=== PATIENT | male | born 1965 | race Two or more races ===

== ENCOUNTER 2021-06-27 13:16 | Emergency (ER) | payer SELFPAY ==
[~2021-06-27] VITALS: Ht 177.8 cm; Wt 78.3 kg
--- NOTE | 2021-06-27 14:48 | PHYS DOC ---
General Adult EDM: Chief Complaint: SHORTNESS OF BREATH HPI: HPI: Patient is a 56 year old male who presents with 5 days ago began with no taste, no smell, nausea, vomiting, headache, body aches, cough, upper back pain and then today began with shortness of breath and chest pain. Patient was diagnosed with Covid yesterday. He states he has not taken any Tylenol or ibuprofen for the last 5 days. He takes no medications daily and denies any kind of medical history. He is Israeli-speaking and chief librarian circulation department is used. Rates his pain an 8 out of 10. Denies syncope, dizziness, vision change, diarrhea, numbness or tingling, focal weakness, abdominal pain, smoking, urinary symptoms. Review of Systems: Review of Systems: Constitutional: +fever or +chills. [] Eyes: Denies change in visual acuity. [] HENT: Denies nasal congestion or sore throat. [] Respiratory: +cough or +shortness of breath. [] Cardiovascular: +chest pain or denies edema. [] GI: Denies abdominal pain, +nausea, +vomiting, denies bloody stools or diarrhea. [] : Denies dysuria. [] Musculoskeletal: +back pain or joint pain. + Generalized body aches [] Integument: Denies rash. [] Neurologic: +headache, denies focal weakness or sensory changes. [] Endocrine: Denies polyuria or polydipsia. [] Lymphatic: Denies swollen glands. [] Psychiatric: Denies depression or anxiety. [] Heart Score: C/O Chest Pain: Yes HEART Score for Chest Pain: HEART Score for Chest Pain Response (Comments) Value History Slighlty/Non-Suspicious 0 ECG Normal 0 Age >45 - < 65 1 Risk Factors No Risk Factors 0 Troponin < Normal Limit 0 Total 1 Risk Factors: Risk Factors: DM, Current or recent (<one month) smoker, HTN, HLP, family history of CAD, obesity. Risk Scores: Score 0 - 3: 2.5% MACE over next 6 weeks - Discharge Home Score 4 - 6: 20.3% MACE over next 6 weeks - Admit for Clinical Observation Score 7 - 10: 72.7% MACE over next 6 weeks - Early Invasive Strategies Current Medications: Current Medications Medications (Trade) Dose Ordered Sig/Michael Start Time Stop Time Status Last Admin Dose Admin Ketorolac Tromethamine (Toradol 30mg Vial) 30 mg 1X ONCE 06/27/21 14:15 06/27/21 14:16 UNV Methylprednisolone Sodium Succinate (SOLU-Medrol 125MG VIAL) 80 mg 1X ONCE 06/27/21 14:15 06/27/21 14:16 UNV Ondansetron HCl (Zofran) 4 mg 1X ONCE 06/27/21 14:15 06/27/21 14:16 UNV Sodium Chloride 1,000 ml @ 1,000 mls/hr 1X ONCE 06/27/21 14:15 06/27/21 15:14 UNV Physical Exam: PE: Constitutional: Well developed, well nourished, no acute distress, non-toxic appearance. [] HENT: Normocephalic, atraumatic, bilateral external ears normal, oropharynx moist, no oral exudates, nose normal. [] Eyes: PERRLA, EOMI, conjunctiva normal, no discharge. [] Neck: Normal range of motion, no tenderness, supple, no stridor. [] Cardiovascular:Heart rate regular rhythm, no murmur [] Lungs & Thorax: Bilateral breath sounds clear to auscultation [] Abdomen: Bowel sounds normal, soft, no tenderness, no masses, no pulsatile masses. [] Skin: Warm, dry, no erythema, no rash. [] Back: No tenderness, no CVA tenderness. [] Extremities: No tenderness, no cyanosis, no clubbing, ROM intact, no edema. [] Neurologic: Alert and oriented X 3, normal motor function, normal sensory function, no focal deficits noted. [] Psychologic: Affect normal, judgement normal, mood normal. [] EKG: EK and read by Dr. Seymour is a sinus rhythm and no STEMI Radiology/Procedures: Radiology/Procedures: [] Impression: [facility] [address] [place], [place] [id number] IMAGING REPORT Signed PATIENT: ANNABELLE MASTERSON ACCOUNT: [id number] : 1965 LOCATION: ER AGE: 56 SEX: M EXAM STATUS: REG ER ORD. PHYSICIAN: BALA PORTILLO APRN REASON: SOA, COUGH, CHEST PAIN with nurse@[phone] PROCEDURE: PORTABLE CHEST 1V Study: XR CHEST 1V Indication: Shortness of air. Cough. Chest pain. Comparison: None. Findings: Ill-defined right more so than left airspace infiltrates. On the right there is a relative subpleural and basilar predilection. Mild asymmetric elevation of the right hemidiaphragm. No layering effusion or pneumothorax. Within normal limits cardiomediastinal silhouette with respect to size considering AP technique and low lung volumes. Impression: Right more so than left airspace infiltrates which are nonspecific but raise the question of a multifocal pneumonia. Electronically signed by: LIBORIO MANLEY MD (06/27/2021 4:04 PM) [facility] DICTATED and SIGNED BY: LIBORIO MANLEY MD DATE: 06/27/21 [id number] 0 Course & Med Decision Making: Course & Med Decision Making Pertinent Labs and Imaging studies reviewed. (See chart for details) COVID-19 CRITERIA: The patient was evaluated during the global COVID-19 pandemic, and that diagnosis was suspected/considered upon their initial presentation. Their evaluation, treatment and testing was consistent with current guidelines for patients who present with complaints or symptoms that may be related to COVID-19. See HPI. Alert and oriented x4. Ambulatory with a steady gait. Speaks in full clear sentences. Skin pink warm and dry. Lungs are clear to all station all lobes. No extremity edema. Mucous membranes moist. Vital signs are within normal limits. He is not toxic appearing. Patient is afebrile. 1642: Chest x-ray shows multifocal pneumonia. I gave him azithromycin and Rocephin, normal saline fluids, Solu-Medrol. Patient is given a breathing treatment. I called and spoke to Dr. Lu and he is bringing a finger oxygenation monitor down for the patient to take home with him. States the patient also meets criteria for the monoclonal antibodies treatment. Patient is stable. I have called pharmacy and they have ordered it for the patient. Currently trying to set up outpatient tomorrow for the patient to get infusion. Dr. Seymour states to not send the patient home with any antibiotics at this time. I will send him home with a inhaler prescription. [facility] the chief librarian circulation department phone. Patient states his understanding and states he is okay to receive this. He understands the risk and benefits. I also gave him a copy in Israeli. After infusion patient will be discharged home. 2021: Patient tolerated infusion without complication. He ate dinner tray. Patient is discharged home. [] Dragon Disclaimer: Dragon Disclaimer: This electronic medical record was generated, in whole or in part, using a voice recognition dictation system. COVID-19 Patient Risks: Age 65 or older: No Sign of co-morbidity: No Exp to person + for COVID: Yes Exp to PUI: Yes Travel from affected area: No Lower respiratory symptoms: Yes Fever: Yes Other: Yes (n,v) PPE Use: Full PPE with N95 mask or PAPR: Yes Departure Departure Impression: Primary Impression: COVID-19 Additional Impression: Pneumonia Qualified Codes: J18.9 - Pneumonia, unspecified organism Disposition: HOME / SELF CARE / HOMELESS Condition: STABLE Referrals: NO PCP (PCP) Patient Instructions: Pneumonia, Adult Additional Instructions: Return to the ER for severe shortness of breath, severe chest pain or if you cannot keep down any kind of fluid. Take Tylenol or ibuprofen to help with your pain regularly. Drink plenty of fluid. Definicin Se le realiz la prueba de deteccin del COVID-19 o se le diagnostic dicha enfermedad. Es gordon infeccin ocasionada por un nuevo tipo de coronavirus. En la mayora de los casos, el COVID-19 provoca sntomas similares a los del resfriado. En algunas personas, puede ocasionar sntomas ms graves, asuncion problemas respiratorios. No existe un tratamiento para el virus COVID-19. El cuerpo elimina la infeccin con el tiempo. El cuidado personal ayuda a aliviar el malestar. Pasos que debe seguir 1. Cuidados personales Descanse cuando sea necesario. Los hbitos saludables pueden ayudarlo a sentirse mejor. Algunas medidas para lograr cambios incluyen lo siguiente: - Elija alimentos saludables, asuncion frutas y verduras. Heidy abundante cantidad de agua priyanka todo el da. - Duerma francis por la noche. - Si fuma, intente no hacerlo. Deridder ayudar a mejorar la respiracin. - Evite el alcohol. 2. Mantenga sanos a los dems El virus puede contagiarse a otras personas. Cada vez que estornuda o tose, se liberan gotitas. Las gotitas pueden entrar en la boca, la nariz o los ojos de las personas que se encuentran cerca de usted y ocasionar la infeccin. Para reducir las probabilidades de contagiar el virus COVID-19 a otros, tenga en cuenta lo siguiente: - Qudese en casa el tiempo que el mdico se lo indique. Es posible que deba quedarse en casa hasta que la enfermedad desaparezca. Salga nicamente para recibir atencin mdica o en edgar de urgencia. - Evite las reas pblicas, los eventos o el transporte pblico. No reanude las actividades laborales o escolares hasta que el mdico lo autorice. - Llame previamente si necesita asistir a un centro mdico. Avise que es posible que haya contrado COVID-19. Deridder ayudar a que le indiquen adonde debe dirigirse. Ronak pueden pedirle que use gordon mscara facial cuando vaya al consultorio. Si llama a los servicios de asistencia mdica de urgencias, avseles que es posible que haya contrado COVID-19. Mientras est en casa: - Evite el contacto directo con otras personas. Mantngase a gordon distancia aproximada de 2 metros. Si es posible, pasen la mayor parte del tiempo en almendarez separadas. - Use gordon mscara facial si estar en contacto directo con otras personas, por ejemplo, si compartir gordon habitacin o un vehculo. - Pida a alguien que limpie las superficies comunes de la casa. Limpie picaportes, mesadas y lavamanos con limpiadores domsticos todos los dye. - Al toser o estornudar, cbrase con un pauelo de papel. Despus de usarlo, deschelo de inmediato. Si no tiene un pauelo de papel, tosa o estornude en el pliegue del codo. - Lvese las florinda con frecuencia. Lvese las florinda despus de estornudar o toser. Lvese con agua y jabn priyanka, al menos, 20 segundos. Si no dispone de agua y jabn, use un limpiador de florinda a base de alcohol. - No cocine para otros. Evite compartir objetos personales, asuncion tenedores, cucharas o cepillos de dientes. - Mientras est enfermo, evite el contacto directo con las mascotas. No hay indicios de si el virus se transmite a las mascotas. Esta es gordon medida de seguridad que debe tenerse en cuenta hasta que se sepa ms acerca de sugey virus. El aislamiento puede ser frustrante. La interaccin social puede ayudar. Mantngase en contacto con amigos y familiares por telfono u otros medios tecnolgicos. Puede interactuar con otras personas en el hogar, patience mantenga gordon distancia bansal de aproximadamente 2 metros. Seguimiento Las pruebas para confirmar la presencia del COVID-19 pueden demorar algunos dye. Es posible que deba seguir los pasos mencionados anteriormente hasta que estn los resultados de las pruebas. Lo llamarn del consultorio mdico para saber si starks habido algn cambio en aldridge nicho. Tambin le avisarn cuando pueda volver a estar cerca de otras personas. Problemas a los que debe estar atento Comunquese con el mdico si no se recupera segn lo previsto o si tiene problemas asuncion los siguientes: - Dificultad para respirar - Dolor de pecho - Empeoramiento de los sntomas Si sixto que tiene gordon urgencia, llame a los servicios de asistencia mdica de urgencias de inmediato. As taken from [employer] Albuterol Sulfate (PROAIR HFA INHALER) 8.5 Gm Hfa.aer.ad 1 PUFF INH PRN Q6HRS PRN for SHORTNESS OF BREATH, #1 EACH 0 Refills Prov: BALA PORTILLO CUTTER HAND 06/27/21 BALA PORTILLO CUTTER HAND Jun 27, 2021 14:48
[2021-06-27] MEDS ORDERED: KETOROLAC 30 MG/ML VIAL. IVP ONE (15:00)
[2021-06-27] MEDS ORDERED: IV NORMAL SALINE 1000ML BAG 1,000 ML IV ONE ×2 (15:00→16:15)
[2021-06-27] MEDS ORDERED: methylPREDNISolone SOD SUCC PF 125 MG/2 ML VIAL. IV ONE (15:00)
[2021-06-27] MEDS ORDERED: ONDANSETRON PF 4 MG/2 ML VIAL. IVP ONE (15:00)
--- NOTE | 2021-06-27 15:01 | EKG ---
[facility] [address] [place] [address] Test Date: 2021-06-27 Test Time: 14:09:24 Pat Name: ANNABELLE MASTERSON Department: Room: Gender: M [employer] Mechanical Specialist: : 1965 Requested By: BALA PORTILLO Order Number: [id number] Reading MD: Nelson Mckinney MD Measurements Intervals [place] Rate: 99 P: 1 PA: 156 QRS: -7 QRSD: 98 T: 15 QT: 336 QTc: 431 Interpretive Statements SINUS RHYTHM Electronically Signed On 06-28-2021 13:27:20 DIRECTOR OF SUSTAINABILITY PROGRAMS by Nelson Mckinney MD
[2021-06-27 15:06] LABS: BASO % 0 % (0-3); EOS % 0 % (0-3); HEMATOCRIT 43.1 % (39.0-53.0); HEMOGLOBIN 15.2 g/dL (13.0-17.5); LYMPH # 0.5 x10^3/uL (1.0-4.8); LYMPH % 6 % (24-48); MEAN CORPUSCULAR HEMOGLOBIN 32 pg (25-35); MEAN CORPUSCULAR HGB CONC 35 g/dL (31-37); MEAN CORPUSCULAR VOLUME 90 fL (79-100); MONO # 0.4 x10^3/uL (0.0-1.1); MONO % 5 % (0-9); NEUT # 7.1 x10^3/uL (1.8-7.7); NEUT % 89 % (31-73); PLATELET COUNT 233 x10^3/uL (140-400); RED BLOOD COUNT 4.77 x10^6/uL (4.30-5.70)
[2021-06-27 15:22] LABS: CALCIUM 8.5 mg/dL (8.5-10.1); GFR 77.6; POTASSIUM 3.3 mmol/L (3.5-5.1)
[2021-06-27 15:28] LABS: ALBUMIN 3.1 g/dL (3.4-5.0); ALBUMIN/GLOBULIN RATIO 0.7 (1.0-1.7); TOTAL BILIRUBIN 0.6 mg/dL (0.2-1.0); TOTAL PROTEIN 7.3 g/dL (6.4-8.2)
[2021-06-27] MEDS ORDERED: AZITHRMYCN 500MG IVPB FOR OMNI 250 ML IV ONE (15:45)
[2021-06-27] MEDS ORDERED: cefTRIAXone IV Push 1 GM VIAL. IVP ONE (15:45)
[2021-06-27] MEDS ORDERED: ALBUTEROL SULFATE 2.5 MG/3 ML NEBU. NEB ONE (15:45)
--- NOTE | 2021-06-27 16:06 | RAD ---
Study: XR CHEST 1V Indication: Shortness of air. Cough. Chest pain. Comparison: None. Findings: Ill-defined right more so than left airspace infiltrates. On the right there is a relative subpleural and basilar predilection. Mild asymmetric elevation of the right hemidiaphragm. No layering effusion or pneumothorax. Within normal limits cardiomediastinal silhouette with respect to size considering AP technique and low lung volumes. Impression: Right more so than left airspace infiltrates which are nonspecific but raise the question of a multif ocal pneumonia. Electronically signed by: LIBORIO MANLEY MD (06/27/2021 4:04 PM) [facility]
[2021-06-27] MEDS ORDERED: ALBU2.5V8 INH (16:44)
[2021-06-27] MEDS ORDERED: CASIRIVIMAB/IMDEVIMAB 600/600mg in IV NS TV=50 ML IV ONE (17:00)
[2021-06-27 21:13] VITALS: BP 124/83
== END 2021-06-27 21:35 | disposition home or self-care (01) ==
LOC: ER 13:16
DX: U07.1 COVID-19 (principal); J18.9 Pneumonia, unspecified organism
CPT/HCPCS: 36415; 71045; 80053; 83735; 83880; 84484; 85025; 93005; 94640; 96365; 96366; 96375; 99285; J0456; J0696; J1885; J2405; J2930; J7030; J7613; M0243; Q0244; Q0243